=== PATIENT | female | born 1965 ===

== ENCOUNTER 2018-09-20 08:50 | Inpatient (IN) | payer OTHER ==
[~2018-09-20] VITALS: Ht 160 cm; Wt 95.3 kg
[2018-10-03] MEDS ORDERED: EFFEXOR XR150 MG PO (14:29)
[2018-10-03] MEDS ORDERED: ALTACE10 MG PO (14:29)
[2018-10-03] MEDS ORDERED: PRILOSEC OTC20 MG PO (14:30)
== END 2018-10-12 19:54 | disposition home or self-care (01) | DRG 333 ==
LOC: ADM 10-03 13:00 → SEC-K 10-09 12:45 → SURH 10-09 12:45 → EDSTATUS 10-10 13:00 → CIR.AMB 10-10 13:00 → SURH 10-12 19:54
PROVIDERS: ADMIT Colon & Rectal Surgery
PROC: 30233N1 Transfusion of Nonautologous Red Blood Cells into Peripheral Vein, Percutaneous Approach (ICD-10-PCS; 2018-10-09)
PROC: 06BY0ZC Excision of Hemorrhoidal Plexus, Open Approach (ICD-10-PCS; 2018-10-12)
PROC: 06LY0CC Occlusion of Hemorrhoidal Plexus with Extraluminal Device, Open Approach (ICD-10-PCS; 2018-10-12)
PROC: 0DBP4ZZ Excision of Rectum, Percutaneous Endoscopic Approach (ICD-10-PCS; principal; 2018-10-12 07:00)
DX: D12.9 Benign neoplasm of anus and anal canal (principal); K62.5 Hemorrhage of anus and rectum; K64.8 Other hemorrhoids; K64.4 Residual hemorrhoidal skin tags; K64.2 Third degree hemorrhoids; D50.0 Iron deficiency anemia secondary to blood loss (chronic)

== ENCOUNTER 2018-10-03 15:58 | Outpatient (CLI) | payer OTHER ==
[~2018-10-03 15:58] MED LIST: ALTACE10 MG PO; EFFEXOR XR150 MG PO; PRILOSEC OTC20 MG PO
== END 2018-10-03 16:09 | disposition home or self-care (01) ==
LOC: LAB 15:58
DX: D64.89 Other specified anemias (principal)

== ENCOUNTER 2018-10-19 16:32 | Inpatient (IN) | payer OTHER ==
[~2018-10-19] VITALS: Ht 160 cm; Wt 95.3 kg
--- NOTE | 2018-10-19 16:59 | NUR ---
SE RECIBE PTE FEMINA ALERTA Y ORIENTADA X3 QUIEN REFIERE FUE OPERADA DE HEMORROIDES EL VIERNES POR DR JOSELYN Y FUE CHERYL DE CARSON EL MISMO WILBER. PTE REFIERE DESDE HOY ESTA [place] ANAL ALVARO CON COAGULOS. PTE REFIERE FUE TRANFUNDIDA EL COLEMAN 15.
--- NOTE | 2018-10-19 17:32 | NUR ---
PTE ALERTA Y ORIENTADA X3, SE LE JOSE MUESTRAS DE LAB. ALEJANDRO ORDEN MEDICA BAJO MEDIDAS ASEPTICAS. SE CANALIZA AREA AKIRA DE EDEMA Y DE ENROJECIMIENTO. PTE MANEJADO POR RHONDA.
--- NOTE | 2018-10-19 22:05 | NUR ---
SE ORIENTA AL PACIENTE SOBRE EL TX. SE EXTRAEN MUESTRAS DE NICO BAJO MEDIDAS ASEPTICAS SE ROTULAN Y ENVIAN AL LABORATORIO. SE CANALIZA Y COLOCA H/L. SE EXTRAE TUBOS PILOTOS PARA TYPE &SCREEN Y SON LLEVADAS A BANCO DE NICO.
--- NOTE | 2018-10-19 23:44 | NUR ---
SE RECIBE PTE ALERTA Y ORIENTADA X3, COLOCADA EN CAMA CON BARANDAS ELEVADAS Y INTERCOM ACCESIBLE. SE VERIFICA AREA DE VENOPUNCION LA CUAL SE ENCONTRO PATENTE,AKIRA DE EDEMA Y ERITEMA BAJANDO UN .9 A 80ML/HR EN BRAZO R+. PTE EN NPO, TYPE AND CROSSMATCH TOMADO SIN ORDEN DE TRANSFUSION, PTE CONSULTADA CON LA DRA.MARLA ROY POR BLEEDING ANAL.
--- NOTE | 2018-10-20 08:19 | NUR ---
SE RECIBE PACIENTE DE TURNO ANTERIOR.EN CAMA CON LAS BARANDAS ELEVADAS. ALERTA Y ORIENTADA.AREA DE VENOPUNCION LIMPIA Y SECA,AKIRA DE EDEMA. ES ORIENTADA SOBRE PROCEDIMIENTOS A LLEVARSE A CABO,LO CUAL REFIERE COMPRENDER,
== END 2018-10-23 17:16 | disposition home or self-care (01) | DRG 920 ==
LOC: ER 16:32 → SURG 10-20 10:19
PROVIDERS: ADMIT Colon & Rectal Surgery
PROC: 0DJD8ZZ Inspection of Lower Intestinal Tract, Via Natural or Artificial Opening Endoscopic (ICD-10-PCS; principal; 2018-10-20)
DX: K91.840 Postprocedural hemorrhage of a digestive system organ or structure following a digestive system procedure (principal); K62.5 Hemorrhage of anus and rectum; D62 Acute posthemorrhagic anemia; K64.2 Third degree hemorrhoids; K62.89 Other specified diseases of anus and rectum; R42 Dizziness and giddiness; I10 Essential (primary) hypertension; F41.8 Other specified anxiety disorders; F32.89 Other specified depressive episodes; K59.09 Other constipation